=== PATIENT | female | born 1985 | race Caucasian/White ===

== ENCOUNTER → 2017-02-09 | Outpatient (CLI) | payer OTHER ==
--- NOTE | 2017-02-09 10:48 | MM ---
Reason for exam: screening (asymptomatic). History: Family history of breast cancer in mother at age 51. Physical Findings: Nurse did not find any significant physical abnormalities on exam. MG Screening Mammo w CAD Bilateral CC and MLO view(s) were taken. The breast tissue is heterogeneously dense. This may lower the sensitivity of mammography. Finding: There are typically benign calcifications. These results were verbally communicated with the patient and result sheet given to the patient on 02/09/17. ASSESSMENT: Suspicious, BI-RAD 4 RECOMMENDATION: Stereotactic core biopsy of the right breast. Called Dr. cMclendon with mammographic findings and has scheduled an appointment for the patient for 02/22/17 at 10:[address] Dutton. PRELIMINARY REPORT CALLED AND FAXED TO DR. DUTTON ON 02/09/17.
== END | disposition home or self-care (01) ==
LOC: RADMAMWWP 09:25
PROVIDERS: ATTEND Family Medicine
DX: Z12.31 Encounter for screening mammogram for malignant neoplasm of breast (principal); Z80.3 Family history of malignant neoplasm of breast

== ENCOUNTER → 2017-03-01 | Day surgery (SDC) | payer OTHER ==
[2017-03-01 13:47] VITALS: RESP 16; BMI 33.5
[2017-03-01 14:57] VITALS: BP 110/75; PULSE 67; TEMP 97.1
--- NOTE | 2017-03-01 15:45 | MM ---
EXAMINATION TYPE: MG stereo VAD BX RT DATE OF EXAM: 03/01/2017 COMPARISON: Prior mammogram February 09, 2017 CLINICAL HISTORY: Abnormal mammogram TECHNIQUE: Stereotactic guided core biopsy of right breast with clip placement and follow-up two-view mammogram. FINDINGS: The procedure of stereotactic guided core biopsy was explained to the patient. Benefits, alternatives, and risks were discussed. An informed consent was then obtained. I performed the localization, then surgeon, Dr. Starks performed the remainder of the procedure. A vacuum assisted biopsy gun was used to obtain multiple core samples. The patient tolerated the procedure well without any immediate complication. The patient was kept in the radiology department for short stay after the procedure and then discharged home in stable condition. Targeted calcifications are identified in specimen mammogram. Post biopsy mammogram shows the clip to appear in satisfactory position relative to the targeted area of concern on the preprocedure images. IMPRESSION: SUCCESSFUL, UNCOMPLICATED STEREOTACTIC GUIDED CORE BIOPSY OF AREA OF CONCERN IN THE RIGHT BREAST, FULL PATHOLOGY RESULTS TO FOLLOW. Low to intermediate index of suspicion noted at time of procedure. Pathology Results: Benign BREAST, RIGHT, SITE A, STEREOTACTIC CORE BIOPSY: AREAS OF STROMAL FIBROSIS AND FIBROADENOMATOUS HYPERPLASIA, PENDING DEEPER SECTIONS. ADDENDUM REPORT BREAST, RIGHT, SITE A, STEREOTACTIC CORE BIOPSY: STROMAL FIBROSIS, CYST FORMATION, APOCRINE METAPLASIA, ADENOSIS, MILD CHRONIC INFLAMMATION, FIBROADENOMATOUS HYPERPLASIA, DUCT HYPERPLASIA AND CALCIFICATIONS. Recommendation Follow up mammogram of the right breast in 6 months. MTDD
--- NOTE | 2017-03-01 16:54 | PCN ---
PROCEDURE NOTE The patient is a 31-year-old white female who had a mammographic abnormality noted in her right breast. Of concern is the fact that she has a positive family history with her mother having had ductal carcinoma in situ. The lesion was noted to be present in the upper outer quadrant. A breast examination had been performed and the patient did not have any dominant mass or nodules of concern in either breast nor any axillary adenopathy of concern. The approach used to target the lesion was CC from above. The lesion was targeted stereotactically. The breast was prepped using Betadine. 1% lidocaine was used to anesthetize the area of concern. A vacuum assisted biopsy device was used to obtain multiple core biopsies after having been driving to the correct coordinates. Prefire and postfire x-rays were obtained of the biopsy needle prior to procuring the specimen. Radiograph of the specimen revealed that microcalcifications were present. A secure jett was then placed. The patient tolerated the procedure in stable condition. The specimen was sent for pathology. MMODL / IJN: [id number] /
== END ==
LOC: RADMAMWWP 13:18
PROVIDERS: ATTEND Surgery
DX: N60.31 Fibrosclerosis of right breast (principal); N62 Hypertrophy of breast; R92.8 Other abnormal and inconclusive findings on diagnostic imaging of breast; Z80.3 Family history of malignant neoplasm of breast
CPT/HCPCS: 88305; 19081; A4648; J2001

== ENCOUNTER → 2017-08-30 | Outpatient (CLI) | payer OTHER ==
--- NOTE | 2017-08-30 11:21 | MM ---
Reason for exam: follow-up at short interval from prior study. Last mammogram was performed 7 months ago. History: Family history of breast cancer in mother at age 51. Benign MG stereo VAD BX RT of the right breast, March 01, 2017. Physical Findings: Nurse did not find any significant physical abnormalities on exam. MG Diagnostic Mammo RT w CAD CC, MLO, and XCCL view(s) were taken of the right breast. Prior study comparison: February 09, 2017, bilateral MG screening mammo w CAD. The breast tissue is heterogeneously dense. This may lower the sensitivity of mammography. Finding: There are typically benign round, grouped/clustered calcifications in the right breast. Previous mammotome biopsy in the right breast. Increase in number of calcifications posterior to clip, similar morphology to sampled calcifications since February 09, 2017. These results were verbally communicated with the patient and result sheet given to the patient on 08/30/17. ASSESSMENT: Probably benign, BI-RAD 3 RECOMMENDATION: Follow-up diagnostic mammogram of both breasts in 6 months.
== END | disposition home or self-care (01) ==
LOC: RADMAMWWP 10:17
PROVIDERS: ATTEND Family Medicine
DX: R92.8 Other abnormal and inconclusive findings on diagnostic imaging of breast (principal)
CPT/HCPCS: 77065

== ENCOUNTER 2018-05-11 09:42 | Emergency (ER) | payer OTHER ==
[2018-05-11 09:46] VITALS: RESP 18
[2018-05-11] MEDS ORDERED: SODIUM CHLORIDE 0.9% 1,000 ML IV STA (10:04)
[2018-05-11] MEDS ORDERED: ONDANSETRON 4 MG/2 ML VIAL IVP STA (10:04)
[2018-05-11] MEDS ORDERED: MORPHINE SULFATE 4 MG/ML SYRINGE IV STA (10:04)
--- NOTE | 2018-05-11 10:09 | ED ---
General Adult HPI - General Chief complaint: Abdominal Pain Stated complaint: flank pain Time Seen by Provider: 05/11/18 10:01 Source: patient, RN notes reviewed Mode of arrival: ambulatory Limitations: no limitations - History of Present Illness Initial comments: Patient 33-year-old female significant past medical history for kidney stones, presenting to the emergency room today with a chief complaint of left flank pain that began approximately 2 hours ago. She does admit to a sharp type pain left flank. States feels similar to kidney stones that she's had in the past. Patient does admit to episode nausea vomiting. Denies any other complaints or symptoms. Patient denies any recent fever, chills, shortness of breath, chest pain, back pain, numbness or tingling, constipation or diarrhea, headaches or visual changes, or any other complaints. - Related Data Previous Rx's Medication Instructions Recorded Ketorolac [Toradol] 10 mg PO Q6HR #12 tab 05/11/18 Ondansetron Odt [Zofran ODT] 4 mg PO Q8HR PRN #20 tab 05/11/18 Tamsulosin [Flomax] 0.4 mg PO DAILY #10 cap 05/11/18 Allergies Allergy/AdvReac Type Severity Reaction Status Date / Time No Known Allergies Allergy Verified 05/11/18 11:00 Review of Systems ROS Statement: Those systems with pertinent positive or pertinent negative responses have been documented in the HPI. ROS Other: All systems not noted in ROS Statement are negative. Past Medical History Additional Past Medical History / Comment(s): Kidney stones History of Any Multi-Drug Resistant Organisms: None Reported Past Surgical History: Section, Tubal Ligation Additional Past Surgical History / Comment(s): lithotripsy, LEEP procedure, Dilatation and Curettage Additional Past Anesthesia/Blood Transfusion Reaction / Comment(s): No transfusions reported to date Past Psychological History: No Psychological Hx Reported Smoking Status: Former smoker Past Alcohol Use History: Occasional Past Drug Use History: None Reported - Past Family History Mother Family Medical History: Cancer Additional Family Medical History / Comment(s): dx. with breast cancer at age 52 General Exam - General Exam Comments Initial Comments: General: The patient is awake and alert Neck: The neck is supple, there is no tenderness or JVD. Cardiovascular: There is a regular rate and rhythm. No murmur, rub or gallop is appreciated. Respiratory: Lungs are clear to auscultation, respirations are non-labored, breath sounds are equal. No wheezes, stridor, rales, or rhonchi. Gastrointestinal: Soft, non-distended, non-tender abdomen without masses or organomegaly noted. There is no rebound or guarding present. No CVA tenderness. Musculoskeletal: Normal ROM, no tenderness. Neurological: A&O x 3. CN II-XII intact, There are no obvious motor or sensory deficits. Coordination appears grossly intact. Speech is normal. Skin: Skin is warm and dry and no rashes or lesions are noted. Psychiatric: Cooperative, appropriate mood & affect, normal judgment. Limitations: no limitations Course Vital Signs 05/11/18 09:43 Temperature 97.9 F Pulse Rate 74 Respiratory 18 Rate Blood Pressure 120/83 O2 Sat by Pulse 97 Oximetry Medical Decision Making - Lab Data Result diagrams: 05/11/18 10:11 05/11/18 10:11 Lab Results 05/11/18 05/11/18 05/11/18 Range/Units 10:11 10:11 10:11 WBC 6.8 (3.8-10.6) k/uL RBC 4.81 (3.80-5.40) m/uL Hgb 14.3 (11.4-16.0) gm/dL Hct 43.0 (34.0-46.0) % MCV 89.5 (80.0-100.0) fL MCH 29.8 (25.0-35.0) pg MCHC 33.3 (31.0-37.0) g/dL RDW 12.8 (11.5-15.5) % Plt Count 236 (150-450) k/uL Neutrophils % 73 % Lymphocytes % 20 % Monocytes % 4 % Eosinophils % 1 % Basophils % 1 % Neutrophils # 4.9 (1.3-7.7) k/uL Lymphocytes # 1.3 (1.0-4.8) k/uL Monocytes # 0.3 (0-1.0) k/uL Eosinophils # 0.1 (0-0.7) k/uL Basophils # 0.0 (0-0.2) k/uL Sodium 143 (137-145) mmol/L Potassium 4.9 (3.5-5.1) mmol/L Chloride 110 H (98-107) mmol/L Carbon Dioxide 25 (22-30) mmol/L Anion Gap 8 mmol/L BUN 16 (7-17) mg/dL Creatinine 0.86 (0.52-1.04) mg/dL Est GFR (CKD-EPI)AfAm >90 (>60 ml/min/1.73 sqM) Est GFR (CKD-EPI)NonAf 89 (>60 ml/min/1.73 sqM) Glucose 96 (74-99) mg/dL Calcium 9.8 (8.4-10.2) mg/dL Total Bilirubin 0.4 (0.2-1.3) mg/dL AST 27 (14-36) U/L ALT 34 (9-52) U/L Alkaline Phosphatase 65 (38-126) U/L Total Protein 7.3 (6.3-8.2) g/dL Albumin 4.6 (3.5-5.0) g/dL Amylase 71 (30-110) U/L Lipase 218 (23-300) U/L Urine Color Urine Appearance (Clear) Urine pH (5.0-8.0) Ur Specific [place] (1.001-1.035) Urine Protein (Negative) Urine Glucose (UA) (Negative) Urine Ketones (Negative) Urine Blood (Negative) Urine Nitrite (Negative) Urine Bilirubin (Negative) Urine Urobilinogen (<2.0) mg/dL Ur Leukocyte Esterase (Negative) Urine RBC (0-5) /hpf Urine WBC (0-5) /hpf Ur Squamous Epith Cells (0-4) /hpf Urine Bacteria (None) /hpf Urine Mucus (None) /hpf Urine Yeast (Budding) (None) /hpf Urine HCG, Qual Not Detected (Not Detectd) 05/11/18 Range/Units 10:11 WBC (3.8-10.6) k/uL RBC (3.80-5.40) m/uL Hgb (11.4-16.0) gm/dL Hct (34.0-46.0) % MCV (80.0-100.0) fL MCH (25.0-35.0) pg MCHC (31.0-37.0) g/dL RDW (11.5-15.5) % Plt Count (150-450) k/uL Neutrophils % % Lymphocytes % % Monocytes % % Eosinophils % % Basophils % % Neutrophils # (1.3-7.7) k/uL Lymphocytes # (1.0-4.8) k/uL Monocytes # (0-1.0) k/uL Eosinophils # (0-0.7) k/uL Basophils # (0-0.2) k/uL Sodium (137-145) mmol/L Potassium (3.5-5.1) mmol/L Chloride (98-107) mmol/L Carbon Dioxide (22-30) mmol/L Anion Gap mmol/L BUN (7-17) mg/dL Creatinine (0.52-1.04) mg/dL Est GFR (CKD-EPI)AfAm (>60 ml/min/1.73 sqM) Est GFR (CKD-EPI)NonAf (>60 ml/min/1.73 sqM) Glucose (74-99) mg/dL Calcium (8.4-10.2) mg/dL Total Bilirubin (0.2-1.3) mg/dL AST (14-36) U/L ALT (9-52) U/L Alkaline Phosphatase (38-126) U/L Total Protein (6.3-8.2) g/dL Albumin (3.5-5.0) g/dL Amylase (30-110) U/L Lipase (23-300) U/L Urine Color Light Red Urine Appearance Cloudy H (Clear) Urine pH 5.5 (5.0-8.0) Ur Specific [place] 1.018 (1.001-1.035) Urine Protein 1+ H (Negative) Urine Glucose (UA) Negative (Negative) Urine Ketones 1+ H (Negative) Urine Blood Large H (Negative) Urine Nitrite Negative (Negative) Urine Bilirubin Negative (Negative) Urine Urobilinogen <2.0 (<2.0) mg/dL Ur Leukocyte Esterase Negative (Negative) Urine RBC >182 H (0-5) /hpf Urine WBC 4 (0-5) /hpf Ur Squamous Epith Cells 2 (0-4) /hpf Urine Bacteria Occasional H (None) /hpf Urine Mucus Few H (None) /hpf Urine Yeast (Budding) Occasional H (None) /hpf Urine HCG, Qual (Not Detectd) Disposition Clinical Impression: Kidney stone Disposition: HOME SELF-CARE Condition: Good Instructions: Kidney Stones (ED) Additional Instructions: Please use medication as discussed. Please follow-up with urology/family doctor in the next 2 days of symptoms have not improved. Please return to emergency room if the symptoms increase or worsen or for any other concerns. Prescriptions: Ketorolac [Toradol] 10 mg PO Q6HR #12 tab Ondansetron Odt [Zofran ODT] 4 mg PO Q8HR PRN #20 tab PRN Reason: Nausea Tamsulosin [Flomax] 0.4 mg PO DAILY #10 cap Is patient prescribed a controlled substance at d/c from ED?: No Referrals: Madi Mcclendon MD [Primary Care Provider] - 1-2 days Waylon Maya MD [STAFF PHYSICIAN] - 1-2 days Time of Disposition: 11:12
[2018-05-11 10:29] LABS: Basophils % (A) 1 %; Eosinophils # (A) 0.1 k/uL (0-0.7); Eosinophils % (A) 1 %; HGB 14.3 gm/dL (11.4-16.0); Lymphocytes # (A) 1.3 k/uL (1.0-4.8); Lymphocytes % (A) 20 %; MCH 29.8 pg (25.0-35.0); MCHC 33.3 g/dL (31.0-37.0); MCV 89.5 fL (80.0-100.0); Mean Platelet Volume 7.2; Monocytes # (A) 0.3 k/uL (0-1.0); Monocytes % (A) 4 %; Neutrophils # (A) 4.9 k/uL (1.3-7.7); Neutrophils % (A) 73 %; Platelet Count 236 k/uL (150-450); RBC 4.81 m/uL (3.80-5.40); RDW 12.8 % (11.5-15.5); WBC 6.8 k/uL (3.8-10.6)
[2018-05-11 10:35] LABS: Appearance,Urine Cloudy (Clear); Bacteria,Urine Occasional /hpf; Bilirubin,Urine Negative (Negative); Blood,Urine Large (Negative); Budding Yeast,Urine Occasional /hpf; Color,Urine Light Red; Glucose,Urine (UA) Negative (Negative); Ketones,Urine 1+ (Negative); Leukocyte Esterase,Urine Negative (Negative); Mucus,Urine Few /hpf; Nitrite,Urine Negative (Negative); PH, Urine 5.5 (5.0-8.0); Protein,Urine 1+ (Negative); RBC,Urine >182 /hpf (0-5); Specific Gravity,Urine 1.018 (1.001-1.035); Squamous Epithelial Cell,Urine 2 /hpf (0-4); Urobilinogen,Urine <2.0 mg/dL (<2.0)
[2018-05-11 10:38] LABS: ALT 34 U/L (9-52); AST 27 U/L (14-36); Albumin 4.6 g/dL (3.5-5.0); Alkaline Phosphatase 65 U/L (38-126); Amylase 71 U/L (30-110); Anion Gap 8 mmol/L; Blood Urea Nitrogen 16 mg/dL (7-17); Calcium 9.8 mg/dL (8.4-10.2); Carbon Dioxide 25 mmol/L (22-30); Chloride 110 mmol/L (98-107); Glucose 96 mg/dL (74-99); Lipase 218 U/L (23-300); Potassium 4.9 mmol/L (3.5-5.1); Sodium 143 mmol/L (137-145); Total Bilirubin 0.4 mg/dL (0.2-1.3); Total Protein 7.3 g/dL (6.3-8.2)
--- NOTE | 2018-05-11 11:00 | XR ---
EXAMINATION TYPE: XR KUB , 2 VIEWS DATE OF EXAM ORDERED: 05/11/2018 HISTORY: abdominal pain. COMPARISON: Previous study dated 01/06/2015. FINDINGS: The lung bases are clear. Within the abdomen, the abdominal gas pattern is normal. There is no evidence of obstruction or free air. There are multiple phleboliths within the pelvis. IMPRESSION: NONACUTE ABDOMINAL PICTURE.
[2018-05-11 11:42] VITALS: BP 114/74; PULSE 70; TEMP 97.1
== END 2018-05-11 11:41 | disposition home or self-care (01) ==
LOC: EC 09:42
DX: N20.0 Calculus of kidney (principal); Z87.442 Personal history of urinary calculi; Z87.891 Personal history of nicotine dependence; Z98.890 Other specified postprocedural states
CPT/HCPCS: 36415; 80053; 82150; 83690; 85025; 81001; 81025; 74018; 99284; 96374; 96375; 96361; J2270; J2405

== ENCOUNTER → 2018-09-25 | Outpatient (CLI) | payer OTHER ==
--- NOTE | 2018-09-26 08:01 | MM ---
Reason for exam: additional evaluation requested from prior study. Last mammogram was performed 1 year and 1 month ago. History: Family history of breast cancer in mother at age 51. Benign MG stereo VAD BX RT of the right breast, March 01, 2017. Physical Findings: Nurse did not find any significant physical abnormalities on exam. MG Diagnostic Mammo w CAD JASS Bilateral CC and MLO view(s) were taken. Prior study comparison: August 30, 2017, right breast MG diagnostic mammo RT w CAD. February 09, 2017, bilateral MG screening mammo w CAD. The breast tissue is heterogeneously dense. This may lower the sensitivity of mammography. Right superior asymmetry resolves on additional views. Post surgical change on the right. These results were verbally communicated with the patient and result sheet given to the patient on 09/25/18. ASSESSMENT: Probably benign, BI-RAD 3 RECOMMENDATION: Follow-up diagnostic mammogram of the right breast in 6 months.
== END | disposition home or self-care (01) ==
LOC: RADMAMWWP 13:35
PROVIDERS: ATTEND Family Medicine
DX: R92.8 Other abnormal and inconclusive findings on diagnostic imaging of breast (principal)
CPT/HCPCS: 77066

== ENCOUNTER → 2019-04-21 | Outpatient (CLI) | payer BC ==
--- NOTE | 2019-04-21 13:21 | MM ---
Reason for exam: follow-up at short interval from prior study. Last mammogram was performed 7 months ago. History: Family history of breast cancer in mother at age 51. Benign MG stereo VAD BX RT of the right breast, March 01, 2017. Physical Findings: Nurse did not find any significant physical abnormalities on exam. MG 3D Diag Mammo W/Cad RT CC and MLO view(s) were taken of the right breast. Prior study comparison: September 25, 2018, bilateral MG diagnostic mammo w CAD JASS. August 30, 2017, right breast MG diagnostic mammo RT w CAD. The breast tissue is heterogeneously dense. This may lower the sensitivity of mammography. There is a 5mm lobulated mass in the right upper outer quadrant 2cm from the prior biopsy site, 8-9cm from nipple. These results were verbally communicated with the patient and result sheet given to the patient on 04/21/19 ASSESSMENT: Incomplete: need additional imaging evaluation, BI-RAD 0 RECOMMENDATION: Ultrasound of the right breast.
--- NOTE | 2019-04-21 13:23 | USB ---
Reason for exam: additional evaluation requested from abnormal screening. History: Family history of breast cancer in mother at age 51. Benign MG stereo VAD BX RT of the right breast, March 01, 2017. US Breast Limited RT Right limited breast ultrasound including focal area of concern, retroareolar and axilla demonstrates a 7 x 6 x 7mm lobular, cystic cluster at 10 o'clock, a 3 x 2 x 4mm oval, cystic lesion at 9 o'clock, a 5 x 4 x 5mm oval, cystic lesion at 9 o'clock and a 6mm oval lymph node at the axilla tail. These results were verbally communicated with the patient and result sheet given to the patient on 04/21/19. ASSESSMENT: Benign, BI-RAD 2 RECOMMENDATION: Routine screening mammogram of both breasts in 6 months. Back on schedule for September 2019.
== END | disposition home or self-care (01) ==
LOC: RADMAMWWP 10:43
PROVIDERS: ATTEND Family Medicine
DX: R92.8 Other abnormal and inconclusive findings on diagnostic imaging of breast (principal)
CPT/HCPCS: 77061; 77065

== ENCOUNTER → 2019-11-14 | Outpatient (CLI) | payer BC, OTHER ==
--- NOTE | 2019-11-20 14:41 | MM ---
Reason for exam: screening (asymptomatic). Last mammogram was performed 7 months ago. History: Family history of breast cancer in mother at age 51. Benign MG stereo VAD BX RT of the right breast, March 01, 2017. Physical Findings: A clinical breast exam by your physician is recommended on an annual basis and results should be correlated with mammographic findings. MG 3D Screening Mammo W/Cad Bilateral CC and MLO view(s) were taken. Prior study comparison: September 25, 2018, bilateral MG diagnostic mammo w CAD JASS. February 09, 2017, bilateral MG screening mammo w CAD. Finding: There are round, grouped/clustered calcifications in the outer quadrant, middle position of the right breast. Previous mammotome biopsy in the right breast. New finding since September 25, 2018 and February 09, 2017. ASSESSMENT: Incomplete: need additional imaging evaluation, BI-RAD 0 RECOMMENDATION: Special view mammogram of the right breast. [facility] will attempt to contact patient to return for supplemental views.
== END | disposition home or self-care (01) ==
LOC: RADMAMWWP 09:14
PROVIDERS: ATTEND Obstetrics & Gynecology
DX: Z12.31 Encounter for screening mammogram for malignant neoplasm of breast (principal); Z80.3 Family history of malignant neoplasm of breast
CPT/HCPCS: 77063; 77067

== ENCOUNTER → 2019-11-25 | Outpatient (CLI) | payer BC, OTHER ==
--- NOTE | 2019-11-25 13:29 | MM ---
Reason for exam: additional evaluation requested from abnormal screening. Last mammogram was performed less than 1 month ago. History: Family history of breast cancer in mother at age 51. Benign MG stereo VAD BX RT of the right breast, March 01, 2017. Physical Findings: Nurse did not find any significant physical abnormalities on exam. MG 3D Work Up W/Cad RT Spot compression CC, spot compression LM, and LM view(s) were taken of the right breast. Prior study comparison: November 14, 2019, bilateral MG 3d screening mammo w/cad. April 21, 2019, right breast MG 3d diag mammo w/cad RT. There are indeterminate calcifications outer central right breast. This finding is changed when compared with previous exams. These results were verbally communicated with the patient and result sheet given to the patient on 11/25/19. ASSESSMENT: Suspicious, BI-RAD 4 RECOMMENDATION: Stereotactic core biopsy of the right breast. Called Dr. August's office with mammographic findings and has scheduled an appointment for the patient for 12/25/19 at 9:[address] Starks. Biopsy scheduled for 12/17/19 at 8:00. PRELIMINARY REPORT CALLED AND FAXED TO DR. STARKS ON 11/25/19.
== END | disposition home or self-care (01) ==
LOC: RADMAMWWP 07:34
PROVIDERS: ATTEND Obstetrics & Gynecology
DX: R92.8 Other abnormal and inconclusive findings on diagnostic imaging of breast (principal)
CPT/HCPCS: 77061; 77065

== ENCOUNTER → 2019-12-17 | Day surgery (SDC) | payer BC, OTHER ==
[2019-12-17 07:13] VITALS: TEMP 98
[2019-12-17 09:14] VITALS: BP 118/83; PULSE 77; RESP 18
--- NOTE | 2019-12-17 16:06 | MM ---
EXAMINATION TYPE: MG stereo VAD BX RT DATE OF EXAM: 12/17/2019 COMPARISON: 09/25/2018 CLINICAL HISTORY: Abnormal breast calcifications right breast TECHNIQUE: Stereotactic guided core biopsy of right breast. FINDINGS: The procedure of stereotactic guided core biopsy was explained to the patient. Benefits, a lternatives, and risks were discussed. An informed consent was then obtained. A timeout was performed. The shortness pathway for biopsy was chosen. Shortness pathway was craniocaudal superior approach. P rocedure was performed by Dr. Emerson. Targeting was provided by radiology. A vacuum assisted biopsy gun was used to obtain multiple core samples. Calcifications were identified and 2 locations. 2 separate core biopsies were performed with separate set up for each. Both were within the same window. The skin and deeper tissue was anesthetized with 1% lidocaine. Pre and post fire imaging was performe d for each biopsy. The first biopsy of the 9:00 middle position was performed with 7 core biopsies. Calcifications were within the sample. The second biopsy of the 9:00 posterior position was performed with 6 core biopsies. Calcifications w ithin the sample. The patient tolerated the procedure well. Specimens: Each specimen, separately labeled, containing targeted calcifications. Postprocedure mammogram: Post biopsy mammogram shows the the biopsy clips to appear in satisfactory p osition relative to the targeted areas of concern on the preprocedure images. IMPRESSION: 1. 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 Recommendations: 1. Recommendations are pending pathology results.
== END ==
LOC: RADMAMWWP 06:51
PROVIDERS: ATTEND Surgery
DX: N60.31 Fibrosclerosis of right breast (principal); N60.21 Fibroadenosis of right breast; N60.81 Other benign mammary dysplasias of right breast; N60.01 Solitary cyst of right breast
CPT/HCPCS: 88305; 19081; 19082; A4648; J2001

== ENCOUNTER → 2019-12-25 | Outpatient (CLI) | payer OTHER ==
--- NOTE | 2019-12-25 09:40 | P.GSHP ---
History of Present Illness H&P Date: 12/25/19 Chief Complaint: Fibrocystic breast changes Amy is a 34 -year-old white female status post stereotactic core biopsy of 2 [place] [id number]. Pathology revealed fibrocystic changes. She had had a previous right breast biopsy approximately 2 years ago which was benign. The reason for the early screening mammograms is that her mother had breast cancer at the age of 52. The patient did not feel any lumps masses or nodules in her breast. She is not complaining of any breast pain or nipple discharge. She has no history of any recent trauma or infection in the breast. Caffeine: occasional theophylline: Negative Nicotine:none Family history: Mother: Breast cancer 52, no genetic testing done Hormonal history: Menarche: 10 , 1 [place], breast fed: no, first born at 16 periods irregular, told going through menopause BCP: none hormones: none Surgical history: Right breast biopsy stereo 3 times C section Tubal ligation D&C Leep procedure Lithotripsy Medical History: Kidney stones Social History: smoke: none alcohol: weekends drugs: none - Constitutional Constitutional: Reports sweats - EENT Eyes: denies blurred vision, denies pain Ears: deny: decreased hearing, tinnitus Ears, nose, mouth and throat: Denies headache, Denies sore throat - Breasts Breasts: bilateral: as per HPI - Cardiovascular Cardiovascular: Denies chest pain, Denies shortness of breath - Respiratory Respiratory: Denies cough, Denies 7 - Gastrointestinal Gastrointestinal: Denies abdominal pain, Denies diarrhea, Denies nausea, Denies vomiting - Genitourinary (Female) Genitourinary: Reports kidney stones - Menstruation Menstruation: Reports menses variable - Musculoskeletal Musculoskeletal: Denies myalgias - Integumentary Integumentary: Denies pruritus, Denies rash - Neurological Neurological: Denies numbness, Denies weakness - Psychiatric Psychiatric: Denies anxiety, Denies depression - Endocrine Endocrine: Denies fatigue, Denies weight change - Hematologic/Lymphatic Comment: none - Allergic/Immunologic Allergic/Immunologic: Reports as per HPI Past Medical History Additional Past Medical History / Comment(s): Kidney stones History of Any Multi-Drug Resistant Organisms: None Reported Past Surgical History: Section, Tubal Ligation Additional Past Surgical History / Comment(s): lithotripsy, LEEP procedure, Dilatation and Curettage. Right breast biopsy 2019 Additional Past Anesthesia/Blood Transfusion Reaction / Comment(s): No transf usions reported to date Past Psychological History: No Psychological Hx Reported Smoking Status: Former smoker Past Alcohol Use History: Occasional Additional Past Alcohol Use History / Comment(s): Former smoker. Quit in 2008. Past Drug Use History: None Reported - Past Family History Mother Family Medical History: Cancer Additional Family Medical History / Comment(s): dx. with breast cancer at age 52 Medications and Allergies Home Medications Medication Instructions Recorded Confirmed Type Multivit/Folic Acid/Vit K1 1 each PO DAILY 12/25/19 12/25/19 History [One-A-Day Women's 50 Plus Tab] Allergies Allergy/AdvReac Type Severity Reaction Status Date / Time No Known Allergies Allergy Verified 12/25/19 09:08 Surgical - Exam Vital Signs Temp Pulse Resp BP Pulse Ox 98.2 F 78 18 124/89 100 12/25/19 09:08 12/25/19 09:08 12/25/19 09:08 12/25/19 09:08 12/25/19 09:08 BMI 37.9 - General well developed, well nourished, no distress - Eyes normal ocular movement - ENT no hearing loss, no congestion - Neck no masses, trachea midline - Respiratory normal respiratory effort, clear to percussion, clear to auscultation - Cardiovascular Rhythm: regular Heart Sounds: normal: S1, S2 - Abdomen Abdomen: soft, non tender, no guarding, no rigid, no rebound - Integumentary normal turgor - Neurologic no disoriented, no combative - Musculoskeletal normal gait - Psychiatric oriented to time, oriented to person, oriented to place, speech is normal, memory intact breast exam: BRA: 38DD inspection: grade 2 ptosis bilateral, ecchymosis and right breast at site of biopsy no evidence of infection palpation: right breast: Multi-positional exam no dominant masses or nodules of concern, fibrocystic changes, ecchymosis at site of biopsy no evidence of infection or hematoma Axilla: No adenopathy of concern Left breast: Multi-positional exam no dominant masses or nodules of concern, fibrocystic changes Left axilla: No adenopathy of concern Results Mammogram reviewed with radiology, confirmation that the area of concern had been sampled was obtained, the biopsy appears to be concordant Assessment and Plan Assessment: Impression: 1. Radiographic abnormality right breast status post attempted core biopsy, results concordant 2. Fibrocystic breast changes 3. Family history of breast cancer/mother 4. History of kidney stones 5. Perimenopausal/irregular menstrual periods Plan: 1. Repeat right breast mammogram in 6 months with physician exam at that time 2. Causes of fibrocystic breast changes discussed with the patient and her mother, she understands that if she notes anything of concern will call us sooner Cc: Dr. Berger encounter 35 minutes, > 50% of time in planning and counselling Time with Patient: Greater than 30
[2019-12-25 11:44] VITALS: BP 124/89; PULSE 78; RESP 18; TEMP 98.2
== END | disposition home or self-care (01) ==
LOC: WWCWWP 08:56
PROVIDERS: ATTEND Surgery
DX: Z53.9 Procedure and treatment not carried out, unspecified reason (principal)

== ENCOUNTER → 2020-07-01 | Outpatient (CLI) | payer OTHER ==
--- NOTE | 2020-07-01 09:29 | MM ---
Reason for exam: follow-up at short interval from prior study. Last mammogram was performed 7 months ago. History: Family history of breast cancer in mother at age 51. Benign MG stereo VAD BX addl RT of the right breast, December 17, 2019. Benign MG stereo VAD BX RT of the right breast, December 17, 2019. Benign MG stereo VAD BX RT of the right breast, March 01, 2017. Physical Findings: Nurse did not find any significant physical abnormalities on exam. MG 3D Diag Mammo W/Cad RT CC and MLO view(s) were taken of the right breast. Prior study comparison: November 25, 2019, right breast MG 3d work up w/cad RT. November 14, 2019, bilateral MG 3d screening mammo w/cad. Benign appearing calcifications in the right breast. Previous mammotome biopsy in the right breast. There is chronic nodularity in the right breast is stable. These results were verbally communicated with the patient and result sheet given to the patient on 07/01/20. ASSESSMENT: Benign, BI-RAD 2 RECOMMENDATION: Follow-up diagnostic mammogram of both breasts in 6 months.
== END ==
LOC: RADMAMWWP 07:00
PROVIDERS: ATTEND Surgery
DX: R92.1 Mammographic calcification found on diagnostic imaging of breast (principal); R92.8 Other abnormal and inconclusive findings on diagnostic imaging of breast; Z80.3 Family history of malignant neoplasm of breast
CPT/HCPCS: 77061; 77065

== ENCOUNTER → 2020-08-06 | Outpatient (CLI) | payer OTHER ==
[2020-08-06 08:51] VITALS: BP 122/84; PULSE 77; RESP 18; TEMP 98.1
--- NOTE | 2020-08-06 09:06 | P.PN ---
Subjective Progress Note Date: 08/06/20 Principal diagnosis: fibrocystic breast disease Amy is a 35 -year-old white female status post stereotactic core biopsy of 2 [place] [id number]. Pathology revealed fibrocystic changes. She had had a previous right breast biopsy approximately 2 years ago which was benign. The reason for the early screening mammograms is that her mother had breast cancer at the age of 52. The patient did not feel any lumps masses or nodules in her breast. She is not complaining of any breast pain or nipple discharge. She has no history of any recent trauma or infection in the breast. [place] [id number]. This was felt to be benign BIRADS 2. Follow-up bilateral mammogram in 6 months was recommended. Caffeine: occasional chocolate: Negative Nicotine:none BCP: none Family history: Mother: Breast cancer 52, no genetic testing done Hormonal history: Menarche: 10 , 1 [place], breast fed: no, first born at 16 periods irregular, told going through menopause BCP: none hormones: none Surgical history: Right breast biopsy stereo 3 times C section Tubal ligation D&C Leep procedure Lithotripsy Medical History: Kidney stones Social History: smoke: none alcohol: weekends drugs: none - Constitutional Constitutional: Reports sweats - EENT Eyes: denies blurred vision, denies pain Ears: deny: decreased hearing, tinnitus Ears, nose, mouth and throat: Denies headache, Denies sore throat - Breasts Breasts: bilateral: as per HPI - Cardiovascular Cardiovascular: Denies chest pain, Denies shortness of breath - Respiratory Respiratory: Denies cough - Gastrointestinal Gastrointestinal: Denies abdominal pain, Denies diarrhea, Denies nausea, Denies vomiting - Genitourinary (Female) Genitourinary: Reports kidney stones - Menstruation Menstruation: Reports menses variable - Musculoskeletal Musculoskeletal: Denies myalgias - Integumentary Integumentary: Denies pruritus, Denies rash - Neurological Neurological: Denies numbness, Denies weakness - Psychiatric Psychiatric: Denies anxiety, Denies depression - Endocrine Endocrine: Denies fatigue, Denies weight change - Hematologic/Lymphatic Comment: none - Allergic/Immunologic Allergic/Immunologic: Reports as per HPI Objective - Vital Signs Vital signs: Vital Signs Temp 98.1 F 08/06/20 08:46 Pulse 77 08/06/20 08:46 Resp 18 08/06/20 08:46 BP 122/84 08/06/20 08:46 Pulse Ox 97 08/06/20 08:46 Intake & Output 08/05/20 08/06/20 08/06/20 18:59 06:59 18:59 Weight 104.326 kg - Exam BMI 39.5 - Constitutional General appearance: Present: cooperative - EENT Eyes: Present: EOMI ENT: Present: hearing grossly normal - Neck Neck: Present: normal ROM - Respiratory Respiratory: bilateral: CTA - Cardiovascular Rhythm: regular Heart sounds: normal: S1, S2 - Integumentary Integumentary: Present: normal turgor - Musculoskeletal Musculoskeletal: Present: gait normal - Psychiatric Psychiatric: Present: A&O x's 3, appropriate affect, intact judgment & insight - Additional findings Additional findings: breast exam: BRA: 38DD inspection: Bilateral grade 2/3 ptosis Palpation: Right breast: Multi-positional exam fibrocystic changes, no dominant masses or nodules of concern Right axilla: No adenopathy of concern Left breast: Multi-positional exam fibrocystic changes, no dominant masses or nodules of concern Left axilla: No adenopathy of concern Assessment and Plan Assessment: Impression: 1. Fibrocystic breast changes 2. Family history of breast cancer 3. Patient status post stereotactic core biopsy right breast 2 in November 2019 4. Recent right breast mammogram benign BIRADS 2 Plan: 1. Close surveillance 2. Repeat bilateral mammogram in November 2020 with physician exam at that time 3. Patient to follow up sooner if any questions or concerns
== END ==
LOC: WWCWWP 08:41
PROVIDERS: ATTEND Surgery
DX: N60.11 Diffuse cystic mastopathy of right breast (principal); N60.12 Diffuse cystic mastopathy of left breast; Z80.3 Family history of malignant neoplasm of breast; Z87.891 Personal history of nicotine dependence

== ENCOUNTER → 2021-02-03 | Outpatient (CLI) | payer OTHER ==
--- NOTE | 2021-02-04 08:49 | MM ---
Reason for exam: follow-up at short interval from prior study. Last mammogram was performed 7 months ago. History: Family history of breast cancer in mother at age 51. Benign MG stereo VAD BX addl RT of the right breast, December 17, 2019. Benign MG stereo VAD BX RT of the right breast, December 17, 2019. Benign MG stereo VAD BX RT of the right breast, March 01, 2017. Physical Findings: Nurse did not find any significant physical abnormalities on exam. MG 3D Diag Mammo W/Cad JASS Bilateral CC and MLO view(s) were taken. Prior study comparison: July 01, 2020, right breast MG 3d diag mammo w/cad RT. November 14, 2019, bilateral MG 3d screening mammo w/cad. There are scattered fibroglandular densities. Previous mammotome biopsy in the right breast x 2. There is chronic nodularity in the right breast. There is no discrete abnormality. These results were verbally communicated with the patient and result sheet given to the patient on 02/03/21. ASSESSMENT: Benign, BI-RAD 2 RECOMMENDATION: Routine screening mammogram of both breasts at age 38.
== END | disposition home or self-care (01) ==
LOC: RADMAMWWP 14:52
PROVIDERS: ATTEND Surgery
DX: R92.8 Other abnormal and inconclusive findings on diagnostic imaging of breast (principal); Z80.3 Family history of malignant neoplasm of breast
CPT/HCPCS: 77062; 77066

== ENCOUNTER → 2021-03-04 | Outpatient (CLI) | payer OTHER ==
[2021-03-04 14:31] VITALS: BP 123/88; PULSE 87; RESP 16; TEMP 98
--- NOTE | 2021-03-04 14:44 | P.PN ---
Subjective Progress Note Date: 03/04/21 Principal diagnosis: fibrocystic breast disease fibrocystic breast disease Amy is a 35 -year-old white female status post stereotactic core biopsy of 2 [place] [address]. Pathology revealed fibrocystic changes. She had had a previous right breast biopsy approximately 2 years ago which was benign. The reason for the early screening mammograms is that her mother had breast cancer at the age of 52. The patient did not feel any lumps masses or nodules in her breast. She is not complaining of any breast pain or nipple discharge. She has no history of any recent trauma or infection in the breast. [place] [address]. This was felt to be benign BIRADS 2. Follow-up bilateral mammogram in 6 months was recommended. She had a bilateral mammogram on 02-03-21 which was Benign Birad 2. She is not complaining of any changes in her breast examination. No complaints of any masses lumps or nodules. Caffeine: occasional chocolate: Negative Nicotine:none BCP: none Family history: Mother: Breast cancer 52, no genetic testing done Hormonal history: Menarche: 10 , 1 [place], breast fed: no, first born at 16 periods irregular, told going through menopause BCP: none hormones: none Surgical history: Right breast biopsy stereo 3 times C section Tubal ligation D&C Leep procedure Lithotripsy Medical History: Kidney stones Social History: smoke: none alcohol: weekends drugs: none - Constitutional Constitutional: Reports sweats - EENT Eyes: denies blurred vision, denies pain Ears: deny: decreased hearing, tinnitus Ears, nose, mouth and throat: Denies headache, Denies sore throat - Breasts Breasts: bilateral: as per HPI - Cardiovascular Cardiovascular: Denies chest pain, Denies shortness of breath - Respiratory Respiratory: Denies cough - Gastrointestinal Gastrointestinal: Denies abdominal pain, Denies diarrhea, Denies nausea, Denies vomiting - Genitourinary (Female) Genitourinary: Reports kidney stones - Menstruation Menstruation: Reports menses variable - Musculoskeletal Musculoskeletal: Denies myalgias - Integumentary Integumentary: Denies pruritus, Denies rash - Neurological Neurological: Denies numbness, Denies weakness - Psychiatric Psychiatric: Denies anxiety, Denies depression - Endocrine Endocrine: Denies fatigue, Denies weight change - Hematologic/Lymphatic Comment: none - Allergic/Immunologic Allergic/Immunologic: Reports as per HPI Objective - Vital Signs Vital signs: Vital Signs Temp 98.0 F 03/04/21 14:28 Pulse 87 03/04/21 14:28 Resp 16 03/04/21 14:28 BP 123/88 03/04/21 14:28 Pulse Ox Intake & Output 03/03/21 03/04/21 03/04/21 18:59 06:59 18:59 Weight 107.955 kg - Exam BMI 40.9 - Constitutional General appearance: Present: cooperative - EENT Eyes: Present: EOMI ENT: Present: hearing grossly normal - Neck Neck: Present: normal ROM - Respiratory Respiratory: bilateral: CTA - Cardiovascular Rhythm: regular Heart sounds: normal: S1, S2 - Gastrointestinal General gastrointestinal: Present: soft - Integumentary Integumentary: Present: normal turgor - Musculoskeletal Musculoskeletal: Present: gait normal - Psychiatric Psychiatric: Present: appropriate affect, intact judgment & insight - Additional findings Additional findings: Breast Exam: BRA: 38DD Inspection:bilateral grade 2/3 ptosis Palpation: Right breast: Multi-positional exam fibrocystic changes no dominant masses or nodules of concern Right axilla: No adenopathy of concern Left breast: Multi-positional exam no dominant masses or nodules of concern Left axilla: No adenopathy of concern Assessment and Plan Assessment: Impression: 1. Fibrocystic breast changes 2. Recent bilateral mammogram [id number] benign BIRADS 2 Plan: 1. Repeat bilateral mammogram in 1 year with physician exam at that time We have discuss the possibility of her mother In genetic testing done and the patient is going to talk to her regarding this.
== END ==
LOC: WWCWWP 13:32
PROVIDERS: ATTEND Surgery
DX: N60.11 Diffuse cystic mastopathy of right breast (principal)

== ENCOUNTER → 2022-02-06 | Outpatient (CLI) | payer MEDICAID, OTHER ==
--- NOTE | 2022-02-06 17:39 | MM ---
Reason for Exam: Screening (asymptomatic). Last screening mammogram was performed 12 month(s) ago. Patient History: Menarche at age 10. First Full-Term at age 16. Premenopausal. 12/17/2019, Benign Core Biopsy on the right side. 12/17/2019, Benign Core Biopsy on the right side. 03/01/2017, Benign Core Biopsy on the right side. Mother had breast cancer, age 51. Risk Values: Marisa 5 year model risk: 2.2%. NCI Lifetime model risk: 28.1%. Prior Study Comparison: 02/09/2017 Bilateral Screening Mammogram, [facility]. 08/30/2017 Right Diagnostic Mammogram, [facility]. 09/25/2018 Bilateral Diagnostic Mammogram, [facility]. 04/21/2019 Right Diagnostic Mammogram, [facility]. 11/14/2019 Bilateral Screening Mammogram, [facility]. 11/25/2019 Right Diagnostic Mammogram, [facility]. 07/01/2020 Right Diagnostic Mammogram, [facility]. 02/03/2021 Bilateral Diagnostic Mammogram, [facility]. Tissue Density: There are scattered fibroglandular densities. Findings: Analyzed By CAD. There is no suspicious group of microcalcifications or new suspicious mass in either breast. Overall Assessment: Benign, BI-RAD 2 Management: Screening Mammogram of both breasts in 1 year. A clinical breast exam by your physician is recommended on an annual basis and results should be correlated with mammographic findings. Electronically signed and approved by: Josh Santacruz M.D. Radiologis
== END | disposition home or self-care (01) ==
LOC: RADMAMWWP 08:50
PROVIDERS: ATTEND Surgery
DX: Z12.31 Encounter for screening mammogram for malignant neoplasm of breast (principal); Z80.3 Family history of malignant neoplasm of breast
CPT/HCPCS: 77063; 77067

== ENCOUNTER → 2022-02-10 | Outpatient (CLI) | payer MEDICAID, OTHER ==
[2022-02-10 10:55] VITALS: BP 127/85; PULSE 84; RESP 16
--- NOTE | 2022-02-10 11:50 | P.PN ---
Subjective Progress Note Date: 02/10/22 Principal diagnosis: fibrocystic changes fibrocystic breast disease Amy is a 36 -year-old white female status post stereotactic core biopsy of 2 [place] [address]. Pathology revealed fibrocystic changes. She had had a previous right breast biopsy approximately 2 years ago which was benign. The reason for the early screening mammograms is that her mother had breast cancer at the age of 52. The patient did not feel any lumps masses or nodules in her breast. She is not complaining of any breast pain or nipple discharge. She has no history of any recent trauma or infection in the breast. She had a bilateral mammogram on 02-06-22 which was Benign Birad 2. She is not complaining of any changes in her breast examination. No complaints of any masses lumps or nodules. 5 year Marisa risk evaluation: 2.2% lifetime risk: 28.1% Caffeine: occasional chocolate: Negative Nicotine:none BCP: none Family history: Mother: Breast cancer 52, no genetic testing done Hormonal history: Menarche: 10 , 1 [place], breast fed: no, first born at 16 periods irregular, told going through menopause BCP: none hormones: none Surgical history: Right breast biopsy stereo 3 times C section Tubal ligation D&C Leep procedure Lithotripsy Medical History: Kidney stones Social History: smoke: none alcohol: weekends drugs: none - Constitutional Constitutional: Reports sweats - EENT Eyes: denies blurred vision, denies pain Ears: deny: decreased hearing, tinnitus Ears, nose, mouth and throat: Denies headache, Denies sore throat - Breasts Breasts: bilateral: as per HPI - Cardiovascular Cardiovascular: Denies chest pain, Denies shortness of breath - Respiratory Respiratory: Denies cough - Gastrointestinal Gastrointestinal: Denies abdominal pain, Denies diarrhea, Denies nausea, Denies vomiting - Genitourinary (Female) Genitourinary: Reports kidney stones - Menstruation Menstruation: Reports menses variable - Musculoskeletal Musculoskeletal: Denies myalgias - Integumentary Integumentary: Denies pruritus, Denies rash - Neurological Neurological: Denies numbness, Denies weakness - Psychiatric Psychiatric: Denies anxiety, Denies depression - Endocrine Endocrine: Denies fatigue, Denies weight change - Hematologic/Lymphatic Comment: none - Allergic/Immunologic Allergic/Immunologic: Reports as per HPI Objective - Vital Signs Vital signs: Vital Signs Temp Pulse 84 02/10/22 10:52 Resp 16 02/10/22 10:52 BP 127/85 02/10/22 10:52 Pulse Ox 95 02/10/22 10:52 FiO2 Intake & Output 02/09/22 02/10/22 02/10/22 18:59 06:59 18:59 Weight 106.594 kg - Exam BMI: 40.3 - Constitutional General appearance: Present: cooperative - EENT Eyes: Present: EOMI - Neck Neck: Present: normal ROM - Respiratory Respiratory: bilateral: CTA - Cardiovascular Rhythm: regular Heart sounds: normal: S1, S2 - Gastrointestinal General gastrointestinal: Present: soft - Integumentary Integumentary: Present: normal turgor - Musculoskeletal Musculoskeletal: Present: gait normal - Psychiatric Psychiatric: Present: A&O x's 3, appropriate affect, intact judgment & insight - Additional findings Additional findings: Breast Exam: BRA: 38DD Inspection:bilateral grade 2/3 ptosis Palpation: Right breast: Multi-positional exam fibrocystic changes no dominant masses or nodules of concern Right axilla: No adenopathy of concern Left breast: Multi-positional exam no dominant masses or nodules of concern Left axilla: No adenopathy of concern Assessment and Plan Assessment: Impression: High risk breast cancer Fibrocystic breast changes Bilateral mammogram [id number] benign BIRADS 2 Nothing at this time which would warrant interventional biopsy I discussed with the patient chemoprevention at this time she has declined, however we would like to see if she is a candidate for alternating MRI with mammogram secondary to her lifetime risk of breast cancer 28.1% Plan: Attempt to get mammograms alternating with MRI secondary to left eye risk of breast cancer 28.1% If this is possible I'll see the patient after I M MRI in 6 months otherwise bilateral mammogram in 1 year with physician exam at that time Patient is going to do monthly breast self exams if she notes anything of concern she will call us Patient is going to talk to her mother about genetic testing for her mother, at this time the patient is going to see if her mother will have genetic testing done rather than have a soft Cc: Dr. Mcclendon
== END | disposition home or self-care (01) ==
LOC: WWCWWP 10:29
PROVIDERS: ATTEND Surgery
DX: Z53.9 Procedure and treatment not carried out, unspecified reason (principal)

== ENCOUNTER → 2022-08-25 | Outpatient (CLI) | payer MEDICAID, OTHER ==
--- NOTE | 2022-08-31 08:13 | BMR ---
EXAMINATION TYPE: MR breast BILAT wo/w con DATE OF EXAM: 08/25/2022 COMPARISON: Prior bilateral screening mammogram February 06, 2022 BI-RADS 2 HISTORY: Benign right-sided breast biopsy December 17, 2019 and March 01, 2017. History of breast can cer in mom diagnosed at age 51. Z80.3 per order. TECHNIQUE: A series of fat and water weighted images in the long and short axis views of both breasts are obtained in conjunction with dynamic contrast MRI with subtraction technique. The patient was i njected with 9 mL intravenous Gadavist gadolinium contrast. Three-dimensional and additional postpr ocessing imaging is created on independent workstation and reviewed during official interpretation of this study. FINDINGS: Breast parenchyma is predominantly fatty replaced. There are a few tiny thin-walled cysts s cattered throughout the bilateral breasts. No concerning axillary adenopathy is seen bilaterally. Pos tcontrast images show minimal background enhancement. With regards to the left breast there is no pathologic enhancement or enhancing masses identified. No abnormal skin thickening is seen. The chest wall appears intact. With regards to the right breast, no abnormal skin thickening is seen. Artifact from Surgical clips f rom prior excisional biopsy are noted in the outer aspect middle depth slightly upper aspect. Just in ferior and posterior to this there is a round circumscribed mass image 544 series 701 of T1 hypointen sity and T2 hyperintensity with dynamic imaging showing heterogeneous enhancement with areas of rapid uptake and washout identified. This measures around 5 mm with measurements of 6 x 4 x 7 mm on comput er postprocessing equipment corresponding to sagittal image 41 estimated 7 to 8 cm distance from nipp le that warrants follow-up. No additional pathologic enhancement or enhancing masses identified. Ches t wall is intact. Incidental 1.6 cm intraluminal gallstone axial image 13. IMPRESSION: No MRI evidence for invasive malignancy in either breast. BI-RADS 2 benign findings left breast BI-RADS 4 suspicious finding right breast Recommendation: Diagnostic tomogram right breast mammogram and targeted right breast ultrasound follo w-up to further evaluate this area of concern on MRI. Recommendation: Annual bilateral breast mammogram. Patient is due in January 2023 to be on annual [facility] edule.
== END | disposition home or self-care (01) ==
LOC: RADMRIMAIN 08:57
PROVIDERS: ATTEND Surgery
DX: R92.8 Other abnormal and inconclusive findings on diagnostic imaging of breast (principal); Z80.3 Family history of malignant neoplasm of breast
CPT/HCPCS: 77049; A9585

== ENCOUNTER → 2022-10-09 | Outpatient (CLI) | payer MEDICAID, OTHER ==
--- NOTE | 2022-10-09 07:40 | MM ---
Reason for Exam: Additional evaluation requested from prior study. Last screening mammogram was performed 8 month(s) ago. Patient History: Menarche at age 10. First Full-Term at age 16. Premenopausal. 12/17/2019, Benign Core Biopsy on the right side. 12/17/2019, Benign Core Biopsy on the right side. 03/01/2017, Benign Core Biopsy on the right side. Mother had breast cancer, age 51. Risk Values: Marisa 5 year model risk: 2.5%. NCI Lifetime model risk: 27.9%. Prior Study Comparison: 02/09/2017 Bilateral Screening Mammogram, [facility]. 08/30/2017 Right Diagnostic Mammogram, [facility]. 09/25/2018 Bilateral Diagnostic Mammogram, [facility]. 04/21/2019 Right Diagnostic Mammogram, [facility]. 11/14/2019 Bilateral Screening Mammogram, [facility]. 11/25/2019 Right Diagnostic Mammogram, [facility]. 07/01/2020 Right Diagnostic Mammogram, [facility]. 02/03/2021 Bilateral Diagnostic Mammogram, [facility]. 02/06/2022 Bilateral MG 3D screening mammo w/cad, [facility]. 08/25/2022 Bilateral MR breast bilat wo/w con, [facility]. Tissue Density: Right: There are scattered fibroglandular densities. Findings: Analyzed By CAD. Multiple nodular densities are seen within the right breast unclear which one is the 5 mm enhancing lesion is in on MRI. Overall Assessment: Incomplete: need additional imaging evaluation, BI-RAD 0 Management: Diagnostic Breast Ultrasound of the right breast. Results were given to the patient verbally at the time of exam. Patient should continue monthly self-breast exams. A clinical breast exam by your physician is recommended on an annual basis. This exam should not preclude additional follow-up of suspicious palpable abnormalities. Note on Marisa scores and lifetime risk: 1. A Marisa score greater than 3% is considered moderate risk. If this is the case, consider specialist referral to assess eligibility for a risk reducing agent. 2. If overall lifetime risk for the development of breast cancer is 20% or higher, the patient may qualify for future screening with alternating mammogram and breast MRI. Electronically signed and approved by: Brady Combs DO
--- NOTE | 2022-10-09 08:28 | USB ---
Reason for Exam: Additional evaluation requested from prior study. Patient History: Menarche at age 10. First Full-Term at age 16. Premenopausal. 12/17/2019, Benign Core Biopsy on the right side. 12/17/2019, Benign Core Biopsy on the right side. 03/01/2017, Benign Core Biopsy on the right side. Mother had breast cancer, age 51. Risk Values: Marisa 5 year model risk: 2.5%. NCI Lifetime model risk: 27.9%. Technique: Method: Targeted. Prior Study Comparison: 07/01/2020 Right Diagnostic Mammogram, [facility]. 02/03/2021 Bilateral Diagnostic Mammogram, [facility]. 02/06/2022 Bilateral MG 3D screening mammo w/cad, [facility]. Findings: The upper outer quadrant of the right breast, the axilla of the right breast and the retroareolar of the right breast were scanned. Imaged: Ultrasound imaging of: Area of concern in the upper outer quadrant, retroareolar region and axilla. There is a cystic structure measuring 6 mm in the upper outer quadrant. No other suspicious masses definitively visualized to correlate with MRI. Overall Assessment: Benign, BI-RAD 2 Management: MRI-guided biopsy of the right breast. Given findings on MR are not definitively visualized, a MRI guided biopsy at an outside institution is recommended. A clinical breast exam by your physician is recommended on an annual basis and results should be correlated with mammographic findings. This exam should not preclude additional follow-up of suspicious palpable abnormalities. Results were given to the patient verbally at the time of exam. Electronically signed and approved by: Brady Combs DO
== END | disposition home or self-care (01) ==
LOC: RADMAMWWP 06:46
PROVIDERS: ATTEND Surgery
DX: N60.01 Solitary cyst of right breast (principal); Z80.3 Family history of malignant neoplasm of breast
CPT/HCPCS: 77061; 77065

== ENCOUNTER → 2022-10-19 | Outpatient (CLI) | payer MEDICAID, OTHER ==
[2022-10-19 07:43] VITALS: BP 118/81; PULSE 75; RESP 16; TEMP 98
--- NOTE | 2022-10-19 08:27 | P.PN ---
Subjective Progress Note Date: 10/19/22 Principal diagnosis: abnormal right breast MRI fibrocystic breast disease Amy is a 36 -year-old white female status post stereotactic core biopsy of 2 [place] [id number]. Pathology revealed fibrocystic changes. She had had a previous right breast biopsy approximately 2 years ago which was benign. The reason for the early screening mammograms is that her mother had breast cancer at the age of 52. The patient did not feel any lumps masses or nodules in her breast. She is not complaining of any breast pain or nipple discharge. She has no history of any recent trauma or infection in the breast. She had a bilateral mammogram on 02-06-22 which was Benign Birad 2. She is not complaining of any changes in her breast examination. No complaints of any masses lumps or nodules. 5 year Marisa risk evaluation: 2.2% lifetime risk: 28.1% 10-19-22 08-25-22 . The patient underwent a bilateral breast MRI. This revealed benign findings left breast and suspicious findings right breast. Diagnostic total right breast and targeted right breast ultrasound were recommended. The patient had a right breast diagnostic mammogram and this revealed multiple nodular density seen within the right breast on clear which one was the 5 mm enhancing lesion on the MRI. On the same day she also underwent an ultrasound. The ultrasound revealed a cystic structure measuring 6 mm in the upper quadrant of the right breast and no other suspicious masses identified. Overall this was felt to be benign however given the MRI findings and MRI guided biopsy of the right breast was recommended. Patient is not complaining of any lumps masses or nodules of concern in either breast. Caffeine: occasional chocolate: Negative Nicotine:none BCP: none Family history: Mother: Breast cancer 52, no genetic testing done Hormonal history: Menarche: 10 , 1 miscarrage, breast fed: no, first born at 16 periods irregular, told going through menopause BCP: none hormones: none Surgical history: Right breast biopsy stereo 3 times C section Tubal ligation D&C Leep procedure Lithotripsy Medical History: Kidney stones Social History: smoke: none alcohol: weekends drugs: none - Constitutional Constitutional: Reports sweats - EENT Eyes: denies blurred vision, denies pain Ears: deny: decreased hearing, tinnitus Ears, nose, mouth and throat: Denies headache, Denies sore throat - Breasts Breasts: bilateral: as per HPI - Cardiovascular Cardiovascular: Denies chest pain, Denies shortness of breath - Respiratory Respiratory: Denies cough - Gastrointestinal Gastrointestinal: Denies abdominal pain, Denies diarrhea, Denies nausea, Denies vomiting - Genitourinary (Female) Genitourinary: Reports kidney stones - Menstruation Menstruation: Reports menses variable - Musculoskeletal Musculoskeletal: Denies myalgias - Integumentary Integumentary: Denies pruritus, Denies rash - Neurological Neurological: Denies numbness, Denies weakness - Psychiatric Psychiatric: Denies anxiety, Denies depression - Endocrine Endocrine: Denies fatigue, Denies weight change - Hematologic/Lymphatic Comment: none - Allergic/Immunologic Allergic/Immunologic: Reports as per HPI Objective - Vital Signs Vital signs: Vital Signs Temp 98.0 F 10/19/22 07:39 Pulse 75 10/19/22 07:39 Resp 16 10/19/22 07:39 BP 118/81 10/19/22 07:39 Pulse Ox 96 10/19/22 07:39 FiO2 Intake & Output 10/18/22 10/19/22 10/19/22 18:59 06:59 18:59 Weight 108.862 kg - Constitutional General appearance: Present: cooperative - EENT ENT: Present: hearing grossly normal - Neck Neck: Present: normal ROM - Respiratory Respiratory: bilateral: CTA - Cardiovascular Rhythm: regular Heart sounds: normal: S1, S2 - Integumentary Integumentary: Present: normal turgor - Musculoskeletal Musculoskeletal: Present: gait normal - Psychiatric Psychiatric: Present: A&O x's 3, appropriate affect, intact judgment & insight - Additional findings Additional findings: Breast Exam: BRA: 38DD Inspection:bilateral grade 2/3 ptosis Palpation: Right breast: Multi-positional exam fibrocystic changes no dominant masses or nodules of concern Right axilla: No adenopathy of concern Left breast: Multi-positional exam no dominant masses or nodules of concern Left axilla: No adenopathy of concern Assessment and Plan Assessment: Impression: High risk breast cancer Fibrocystic breast changes Bilateral mammogram 474190 benign BIRADS 2; bilateral breast MRI on 5522 revealing an area of increased suspicion in the right breast, right breast diagnostic mammogram and ultrasound in did not show any specific lesions of concern As the area of concern could not be seen on diagnostic mammogram or ultrasound MRI directed biopsy was recommended I discussed with the patient chemoprevention at this time she has declined, however we would like to see if she is a candidate for alternating MRI with mammogram secondary to her lifetime risk of breast cancer 28.1% Plan: Patient is going to have an MRI directed biopsy of the lesion noted on MRI Patient's mother did not have genetic testing, patient would like to talk to genetic counselor Patient is going to follow up after the MRI directed biopsy Alternating mammogram and MRI she will be due for a mammogram again in January 2023 however I will see her after the MRI directed biopsy Patient is going to do monthly breast self exams if she notes anything of concern she will call us Cc: Dr. Mcclendon
== END ==
LOC: WWCWWP 07:13
PROVIDERS: ATTEND Surgery
DX: N60.11 Diffuse cystic mastopathy of right breast (principal); N60.12 Diffuse cystic mastopathy of left breast; Z80.3 Family history of malignant neoplasm of breast; Z87.891 Personal history of nicotine dependence; Z87.442 Personal history of urinary calculi

== ENCOUNTER → 2023-02-02 | Outpatient (CLI) | payer BC, OTHER ==
[2023-02-02 14:01] VITALS: BP 122/85; PULSE 84; RESP 17; TEMP 97.8
--- NOTE | 2023-02-02 14:08 | P.PN ---
Subjective Progress Note Date: 02/02/23 Principal diagnosis: fibrocystic breast disease abnormal right breast MRI fibrocystic breast disease Amy is a 36 -year-old white female status post stereotactic core biopsy of 2 [place] [address]. Pathology revealed fibrocystic changes. She had had a previous right breast biopsy approximately 2 years ago which was benign. The reason for the early screening mammograms is that her mother had breast cancer at the age of 52. The patient did not feel any lumps masses or nodules in her breast. She is not complaining of any breast pain or nipple discharge. She has no history of any recent trauma or infection in the breast. 10-19-22 08-25-22 . The patient underwent a bilateral breast MRI. This revealed benign findings left breast and suspicious findings right breast. Diagnostic total right breast and targeted right breast ultrasound were recommended. The patient had a right breast diagnostic mammogram and this revealed multiple nodular density seen within the right breast on clear which one was the 5 mm enhancing lesion on the MRI. On the same day she also underwent an ultrasound. The ultrasound revealed a cystic structure measuring 6 mm in the upper quadrant of the right breast and no other suspicious masses identified. Overall this was felt to be benign however given the MRI findings and MRI guided biopsy of the right breast was recommended. Patient is not complaining of any lumps masses or nodules of concern in either breast. 02-02-23 Right breast MRI biopsy done on 01-26-23 benign concordant; tolerated the prior biopsy without difficulty. She is not complaining of any new lumps masses or nodules of concern in either breast. Caffeine: occasional chocolate: Negative Nicotine:none BCP: none Family history: Mother: Breast cancer 52, no genetic testing done Hormonal history: Menarche: 10 , 1 misc[place]age, breast fed: no, first born at 16 periods irregular, told going through menopause BCP: none hormones: none Surgical history: Right breast biopsy stereo 3 times C section Tubal ligation D&C Leep procedure Lithotripsy Medical History: Kidney stones Social History: smoke: none alcohol: weekends drugs: none - Constitutional Constitutional: Reports sweats - EENT Eyes: denies blurred vision, denies pain Ears: deny: decreased hearing, tinnitus Ears, nose, mouth and throat: Denies headache, Denies sore throat - Breasts Breasts: bilateral: as per HPI - Cardiovascular Cardiovascular: Denies chest pain, Denies shortness of breath - Respiratory Respiratory: Denies cough - Gastrointestinal Gastrointestinal: Denies abdominal pain, Denies diarrhea, Denies nausea, Denies vomiting - Genitourinary (Female) Genitourinary: Reports kidney stones - Menstruation Menstruation: Reports menses variable - Musculoskeletal Musculoskeletal: Denies myalgias - Integumentary Integumentary: Denies pruritus, Denies rash - Neurological Neurological: Denies numbness, Denies weakness - Psychiatric Psychiatric: Denies anxiety, Denies depression - Endocrine Endocrine: Denies fatigue, Denies weight change - Hematologic/Lymphatic Comment: none - Allergic/Immunologic Allergic/Immunologic: Reports as per HPI Objective - Vital Signs Vital signs: Vital Signs Temp 97.8 F 02/02/23 13:51 Pulse 84 02/02/23 13:51 Resp 17 02/02/23 13:51 BP 122/85 02/02/23 13:51 Pulse Ox 97 02/02/23 13:51 FiO2 Intake & Output 02/01/23 02/02/23 02/02/23 18:59 06:59 18:59 Weight 108.862 kg - Constitutional General appearance: Present: cooperative - EENT Eyes: Present: EOMI ENT: Present: hearing grossly normal - Neck Neck: Present: normal ROM - Respiratory Respiratory: bilateral: CTA - Cardiovascular Heart sounds: normal: S1, S2 - Integumentary Integumentary: Present: normal turgor - Musculoskeletal Musculoskeletal: Present: gait normal - Psychiatric Psychiatric: Present: A&O x's 3, appropriate affect, intact judgment & insight - Additional findings Additional findings: Breast Exam: BRA: 38DD Inspection:bilateral grade 2/3 ptosis Palpation: Right breast: Multi-positional exam fibrocystic changes no dominant masses or nodules of concern; biopsy site clean and dry Right axilla: No adenopathy of concern Left breast: Multi-positional exam no dominant masses or nodules of concern Left axilla: No adenopathy of concern Assessment and Plan Assessment: Impression: High risk breast cancer Fibrocystic breast changes Bilateral mammogram [id number] benign BIRADS 2; bilateral breast MRI on 55 revealing an area of increased suspicion in the right breast, [place] [address] did not show any specific lesions of concern As the area of concern could not be seen on diagnostic mammogram or ultrasound MRI directed biopsy was recommended; done on 01-26-23 benign concordant I discussed with the patient chemoprevention at this time she has declined, however we would like to see if she is a candidate for alternating MRI with mammogram secondary to her lifetime risk of breast cancer 28.1% At this time she has declined seen a genetic counselor Plan: Patient had a MRI directed biopsy of the lesion noted on right breast MRI; done on 01-26-23 benign concordant Patient has declined genetic counseling at this time Alternating mammogram and MRI she will be due for a mammogram again in January 2023 needs left breast mammogram; right breast mammogram done: appointment after left breast mammogram Patient is going to do monthly breast self exams if she notes anything of concern she will call us Breast MRI in 6 months with follow up Cc: Dr. Mcclendon
== END ==
LOC: WWCWWP 12:46
PROVIDERS: ATTEND Surgery
DX: R92.8 Other abnormal and inconclusive findings on diagnostic imaging of breast (principal); N60.11 Diffuse cystic mastopathy of right breast; N60.12 Diffuse cystic mastopathy of left breast; Z80.3 Family history of malignant neoplasm of breast; Z87.442 Personal history of urinary calculi; Z87.891 Personal history of nicotine dependence